=== PATIENT | female | born 1990 | race African-American/Black ===

== ENCOUNTER 2017-08-12 21:32 | Observation (INO) ==
[2017-08-12 22:00] LABS: Apearance,Urine CLEAR (Clear); Bilirubin,Urine Negative (Negative); Blood, Urine Negative (Negative); Glucose,Urine (UA) Negative (Negative); Ketones,Urine Negative (Negative); Mucus,Urine Moderate /LPF (Occasional); Nitrite,Urine Negative (Negative); Protein,Urine Negative; RBC,Urine 2 /HPF (0-4); Squamous Epithelial Cell,Urine Occasional /HPF (0-10); Urine Color Yellow (Yellow); Urine Specific Gravity 1.024 (1.001-1.035); WBC,Urine 1 /HPF (0-6)
[2017-08-12] MEDS ORDERED: ACETAMINOPHEN 500 MG TABLET PO ONE (23:20)
[2017-08-13 08:17] LABS: Basophils % 0.1 % (0.0-0.8); Eosinophils # 0.1 10*3/uL (0.0-0.87); Eosinophils % 1.2 % (0.00-10.9); Hematocrit 22.7 VOL% (35.7-47.0); Immature Granulocytes % 0.6 %; Immature Granulocytes Absolute 0.05 #; Mean Corpuscular HGB Conc 27.3 GM/DL (32-36); Mean Corpuscular Hemoglobin 18 PG (27-34); Mean Corpuscular Volume 65.8 FL (87-102); Mean Platelet Volume 11.2 FL (9.6-12.0); Monocytes # 0.5 10*3/uL (0.11-0.8); Monocytes % 6.6 % (1.7-12.7); Neutrophils # 5.5 10*3/uL (1.4-7.4); Neutrophils % 67.5 % (38.7-73.9); Platelet Count 259 T/CUMM (130-400); Red Blood Count 3.45 MC/CUMM (3.8-5.5); Red Cell Distribution Width 21.1 % (9.3-17.3); White Blood Count 8.1 T/CUMM (4-12)
[2017-08-13 08:24] LABS: Hemoglobin 6.2 GM/DL (12.0-16.0)
[2017-08-13 08:41] LABS: Hypochromasia 2+; Lymphocytes 18 % (20-55); Microcytosis 2+; Platelet Estimate Adequate; Polychromasia Slight; Segmented Neutrophils 76 % (50-85); Target Cells Slight; Total Cells Counted 100
[2017-08-13] MEDS ORDERED: SODIUM CHLORIDE 0.9% 1,000 ML IV PRN (08:46)
[2017-08-13] MEDS ORDERED: ACETAMINOPHEN 500 MG TABLET PO PRN (13:12)
[2017-08-13] MEDS ORDERED: BETAMETH SODIUM PHOS/ACETATE 30 MG/5 ML VIAL IM ONE (17:50)
[2017-08-13] MEDS ORDERED: NIFEdipine 10 MG CAPSULE PO SCH (18:00)
[2017-08-13 19:32] LABS: Basophils % 0.1 % (0.0-0.8); Eosinophils # 0.1 10*3/uL (0.0-0.87); Eosinophils % 1.1 % (0.00-10.9); Hematocrit 28.2 VOL% (35.7-47.0); Hemoglobin 8.2 GM/DL (12.0-16.0); Immature Granulocytes % 0.7 %; Immature Granulocytes Absolute 0.05 #; Lymphocytes # 1.4 10*3/uL (1.4-4.0); Lymphocytes % 18.2 % (21.3-54.2); Mean Corpuscular HGB Conc 29.1 GM/DL (32-36); Mean Corpuscular Hemoglobin 20 PG (27-34); Mean Corpuscular Volume 68.3 FL (87-102); Mean Platelet Volume 11.3 FL (9.6-12.0); Monocytes # 0.4 10*3/uL (0.11-0.8); Monocytes % 5.8 % (1.7-12.7); NRBC # 0.03 10*3/uL; Neutrophils # 5.6 10*3/uL (1.4-7.4); Neutrophils % 74.1 % (38.7-73.9); Platelet Count 260 T/CUMM (130-400); Red Blood Count 4.13 MC/CUMM (3.8-5.5); Red Cell Distribution Width 22.6 % (9.3-17.3); White Blood Count 7.6 T/CUMM (4-12)
[2017-08-13 22:04] VITALS: BP 116/59
== END 2017-08-13 22:09 | disposition home or self-care (01) ==
LOC: N.LD → N.LDOUT 21:32 → N.LD 21:33 → EDOUTPBED 23:02 → N.LD 23:02 → UNDODISOB 08-13 22:09 → N.LD 08-13 22:13 → UNDODEPREF 08-17 15:15 → EDSTATUS 08-17 15:26
PROVIDERS: ADMIT Obstetrics & Gynecology; ATTEND Obstetrics & Gynecology

== ENCOUNTER 2017-10-04 06:15 | Inpatient (IN) ==
[2017-09-28 11:18] LABS: Basophils % 0.1 % (0.0-0.8); Eosinophils % 0.6 % (0.00-10.9); Hematocrit 28.1 VOL% (35.7-47.0); Hemoglobin 8.1 GM/DL (12.0-16.0); Immature Granulocytes % 0.6 %; Immature Granulocytes Absolute 0.04 #; Lymphocytes # 1.5 10*3/uL (1.4-4.0); Mean Corpuscular HGB Conc 28.8 GM/DL (32-36); Mean Corpuscular Hemoglobin 20 PG (27-34); Mean Corpuscular Volume 70.1 FL (87-102); Mean Platelet Volume 9.7 FL (9.6-12.0); Monocytes # 0.3 10*3/uL (0.11-0.8); Monocytes % 4.7 % (1.7-12.7); NRBC # 0.02 10*3/uL; Neutrophils # 5.1 10*3/uL (1.4-7.4); Platelet Count 226 T/CUMM (130-400); Red Blood Count 4.01 MC/CUMM (3.8-5.5); Red Cell Distribution Width 23.4 % (9.3-17.3)
[2017-09-28 11:23] LABS: Apearance,Urine Slightly Hazy (Clear); Bacteria,Urine Occasional /HPF (Few); Bilirubin,Urine Negative (Negative); Blood, Urine Negative (Negative); Glucose,Urine (UA) Negative (Negative); Ketones,Urine 20 mg/dL (Negative); Mucus,Urine Few /LPF (Occasional); Nitrite,Urine Negative (Negative); Protein,Urine Negative; RBC,Urine <1 /HPF (0-4); Squamous Epithelial Cell,Urine Occasional /HPF (0-10); Urine Color Yellow (Yellow); WBC,Urine <1 /HPF (0-6)
[2017-09-28 11:49] LABS: Calcium 8.9 MG/DL (8.5-10.1); Osmolality,Calculated 274.4 MOS/KG (273-304); Potassium 3.5 MMOL/L (3.5-5.1)
[2017-09-28 11:56] LABS: Elliptocytes Few; Hypochromasia 1+; Microcytosis 2+; Tear Drop Cells Slight
[2017-09-28 11:57] LABS: Platelet Estimate Normal
[2017-10-04] MEDS ORDERED: LACTATED RINGERS 250 ML IV ONE (06:30)
[2017-10-04] MEDS ORDERED: ONDANSETRON 4 MG/2 ML VIAL IV PRN (06:30)
[2017-10-04] MEDS ORDERED: LACTATED RINGERS 1,000 ML IV SCH ×2 (06:30→09:30)
[2017-10-04] MEDS ORDERED: CITRIC ACID/SODIUM CITRATE 30 ML UDCUP PO ONE (06:51)
[2017-10-04] MEDS ORDERED: FAMOTIDINE 20 MG/2 ML VIAL IV ONE (06:52)
[2017-10-04 06:59] LABS: Basophils % 0.1 % (0.0-0.8); Eosinophils # 0.1 10*3/uL (0.0-0.87); Eosinophils % 0.8 % (0.00-10.9); Hematocrit 27.4 VOL% (35.7-47.0); Hemoglobin 8.1 GM/DL (12.0-16.0); Immature Granulocytes % 0.6 %; Immature Granulocytes Absolute 0.05 #; Lymphocytes # 1.9 10*3/uL (1.4-4.0); Lymphocytes % 24.7 % (21.3-54.2); Mean Corpuscular HGB Conc 29.6 GM/DL (32-36); Mean Corpuscular Hemoglobin 20 PG (27-34); Mean Corpuscular Volume 68.7 FL (87-102); Mean Platelet Volume 9.7 FL (9.6-12.0); Monocytes # 0.4 10*3/uL (0.11-0.8); Monocytes % 5.5 % (1.7-12.7); Neutrophils # 5.4 10*3/uL (1.4-7.4); Neutrophils % 68.3 % (38.7-73.9); Platelet Count 203 T/CUMM (130-400); Red Blood Count 3.99 MC/CUMM (3.8-5.5); Red Cell Distribution Width 23.2 % (9.3-17.3); White Blood Count 7.9 T/CUMM (4-12)
[2017-10-04] MEDS ORDERED: OXYTOCIN/LR 20 UNIT/1,000 ML BAG IV ONE ×2 (07:11→09:24)
[2017-10-04] MEDS ORDERED: ceFAZolin 2,000 MG in PREMIX 1 EACH IV ONE (07:11)
[2017-10-04 07:18] LABS: Hypochromasia 1+
[2017-10-04 07:19] LABS: Giant Platelets Few; Microcytosis 1+; Ovalocytes Slight; Platelet Estimate Adequate
[2017-10-04] MEDS ORDERED: LIDOCAINE MPF 2% /EPI 20 ML VIAL ONE ×2 (07:21→09:31)
[2017-10-04] MEDS ORDERED: TISSUE ADHESIVE 1 EACH APPLICATOR TOP ONE ×2 (09:12→09:15)
[2017-10-04] MEDS ORDERED: MAGNESIUM HYDROXIDE SUSP 30 ML UDCUP PO PRN (09:24)
[2017-10-04] MEDS ORDERED: MORPHINE 10 MG/10 ML VIAL ONE (09:30)
[2017-10-04] MEDS ORDERED: MIDAZOLAM 2 MG/2 ML VIAL ONE (09:30)
[2017-10-04] MEDS ORDERED: RHO(D) IMMUNE GLOBULIN 300 MCG SYRINGE IM ONE (10:00)
[2017-10-04] MEDS ORDERED: hydrOXYzine HCL 25 MG/1 ML VIAL IM PRN (11:59)
[2017-10-04] MEDS ORDERED: ceFAZolin 1,000 MG in SYRINGE 1 EACH IV SCH (15:00)
[2017-10-04] MEDS ORDERED: SODIUM BICARBONATE 2.4 MEQ/5 ML VIAL ONE (15:03)
[2017-10-04] MEDS: ceFAZolin 1,000 MG in SYRINGE 1 EACH IV SCH (16:12)
[2017-10-04 17:11] LABS: Basophils % 0.2 % (0.0-0.8); Eosinophils % 0.2 % (0.00-10.9); Hematocrit 25.4 VOL% (35.7-47.0); Hemoglobin 7.8 GM/DL (12.0-16.0); Immature Granulocytes % 0.3 %; Immature Granulocytes Absolute 0.03 #; Lymphocytes # 1.5 10*3/uL (1.4-4.0); Lymphocytes % 14.4 % (21.3-54.2); Mean Corpuscular HGB Conc 30.7 GM/DL (32-36); Mean Corpuscular Hemoglobin 21 PG (27-34); Mean Corpuscular Volume 67.9 FL (87-102); Monocytes # 0.5 10*3/uL (0.11-0.8); Monocytes % 4.9 % (1.7-12.7); Neutrophils # 8.1 10*3/uL (1.4-7.4); Platelet Count 177 T/CUMM (130-400); Red Blood Count 3.74 MC/CUMM (3.8-5.5); Red Cell Distribution Width 22.7 % (9.3-17.3); White Blood Count 10.1 T/CUMM (4-12)
[2017-10-04] MEDS: FERROUS SULFATE 325 MG TABLET PO SCH ×2 (18:34→21:29)
[2017-10-05] MEDS: ceFAZolin 1,000 MG in SYRINGE 1 EACH IV SCH (00:35)
[2017-10-05] MEDS: DOCUSATE SODIUM 100 MG CAPSULE PO SCH ×3 (04:39→21:43)
[2017-10-05] MEDS ORDERED: diphenhydrAMINE CAP 25 MG CAPSULE PO PRN (06:03)
[2017-10-05 06:59] LABS: Basophils % 0.3 % (0.0-0.8); Eosinophils # 0.1 10*3/uL (0.0-0.87); Eosinophils % 0.7 % (0.00-10.9); Hematocrit 25.3 VOL% (35.7-47.0); Hemoglobin 7.5 GM/DL (12.0-16.0); Immature Granulocytes % 0.5 %; Immature Granulocytes Absolute 0.05 #; Lymphocytes # 1.3 10*3/uL (1.4-4.0); Lymphocytes % 12.6 % (21.3-54.2); Mean Corpuscular HGB Conc 29.6 GM/DL (32-36); Mean Corpuscular Hemoglobin 21 PG (27-34); Mean Corpuscular Volume 69.3 FL (87-102); Mean Platelet Volume 10.3 FL (9.6-12.0); Monocytes # 0.6 10*3/uL (0.11-0.8); Neutrophils # 8.2 10*3/uL (1.4-7.4); Neutrophils % 79.9 % (38.7-73.9); Platelet Count 185 T/CUMM (130-400); Red Blood Count 3.65 MC/CUMM (3.8-5.5); Red Cell Distribution Width 22.5 % (9.3-17.3); White Blood Count 10.3 T/CUMM (4-12)
[2017-10-05 07:23] LABS: Band Neutrophils 1 % (0-10); Eosinophils 1 % (0-10); Lymphocytes 12 % (20-55); Segmented Neutrophils 84 % (50-85); Total Cells Counted 100
[2017-10-05 07:30] LABS: Hypochromasia 2+; Microcytosis 2+
[2017-10-05 07:31] LABS: Ovalocytes Slight; Platelet Estimate Adequate
[2017-10-05] MEDS: FERROUS SULFATE 325 MG TABLET PO SCH ×2 (09:13→21:43)
[2017-10-05] MEDS: IBUPROFEN 800 MG TABLET PO PRN (12:03)
[2017-10-05] MEDS: SIMETHICONE CHEW 80 MG TABLET PO PRN (21:43)
[2017-10-06] MEDS: IBUPROFEN 800 MG TABLET PO PRN (06:12)
[2017-10-06] MEDS: SIMETHICONE CHEW 80 MG TABLET PO PRN ×2 (10:17→21:58)
[2017-10-06] MEDS: DOCUSATE SODIUM 100 MG CAPSULE PO SCH ×2 (10:17→21:58)
[2017-10-06] MEDS: FERROUS SULFATE 325 MG TABLET PO SCH ×3 (10:17→21:58)
[2017-10-07] MEDS: IBUPROFEN 800 MG TABLET PO PRN (05:09)
[2017-10-07 07:28] VITALS: BP 128/71
[2017-10-07] MEDS: DOCUSATE SODIUM 100 MG CAPSULE PO SCH (09:25)
[2017-10-07] MEDS: FERROUS SULFATE 325 MG TABLET PO SCH (09:25)
== END 2017-10-07 11:00 | disposition home or self-care (01) | DRG 766 ==
LOC: N.LDOUT 06:15 → N.LD 06:34 → N.OB 11:34
PROVIDERS: ADMIT Obstetrics & Gynecology; ATTEND Obstetrics & Gynecology
PROC: LDCSECT (ICD-10-PCS; 2017-10-04 07:15)

== ENCOUNTER 2020-08-13 10:55 | Inpatient (IN) ==
[2020-08-13] MEDS ORDERED: ONDANSETRON 4 MG/2 ML VIAL IV PRN (11:17)
[2020-08-13] MEDS ORDERED: ACETAMINOPHEN 325 MG TABLET PO PRN (11:17)
[2020-08-13] MEDS ORDERED: SODIUM CHLORIDE 0.9% 1,000 ML IV PRN (11:40)
[2020-08-13 12:04] LABS: Bacteria,Urine Occasional /HPF (Few); Bilirubin,Urine Negative (Negative); Blood, Urine Negative (Negative); Glucose,Urine (UA) Negative (Negative); Ketones,Urine 5 mg/dL (Negative); Mucus,Urine Moderate /LPF (Occasional); Nitrite,Urine Negative (Negative); Protein,Urine 30 MG/DL; RBC,Urine 1 /HPF (0-4); Squamous Epithelial Cell,Urine Occasional /HPF (0-10); Urine Appearance CLEAR (Clear); Urine Color Yellow (Yellow); Urine Specific Gravity 1.026 (1.001-1.035); WBC,Urine <1 /HPF (0-6)
[2020-08-13 12:07] LABS: Basophils % 0.1 % (0.0-0.8); Eosinophils # 0.1 10*3/uL (0.0-0.87); Eosinophils % 1.7 % (0.00-10.9); Hematocrit 25.9 VOL% (35.7-47.0); Hemoglobin 7.6 GM/DL (12.0-16.0); Immature Granulocytes % 0.7 %; Immature Granulocytes Absolute 0.05 #; Lymphocytes # 1.8 10*3/uL (1.4-4.0); Lymphocytes % 24.6 % (21.3-54.2); Mean Corpuscular HGB Conc 29.3 GM/DL (32-36); Mean Corpuscular Volume 68.5 FL (87-102); Mean Platelet Volume 10.5 FL (9.6-12.0); Monocytes % 5.2 % (1.7-12.7); Neutrophils % 67.7 % (38.7-73.9); Platelet Count 347 T/CUMM (130-400); Red Blood Count 3.78 MC/CUMM (3.8-5.5); Red Cell Distribution Width 19.1 % (9.3-17.3); White Blood Count 7.5 T/CUMM (4-12)
[2020-08-13 12:23] LABS: Albumin 2.6 G/DL (3.4-5.0); Bilirubin,Total 0.7 MG/DL (0.2-1.0); Calcium 9.2 MG/DL (8.5-10.1); Osmolality,Calculated 271.7 MOS/KG (273-304); Total Protein 7.5 G/DL (6.4-8.3)
[2020-08-14 02:55] LABS: Basophils % 0.3 % (0.0-0.8); Eosinophils # 0.1 10*3/uL (0.0-0.87); Eosinophils % 1.2 % (0.00-10.9); Hematocrit 31.7 VOL% (35.7-47.0); Hemoglobin 9.7 GM/DL (12.0-16.0); Immature Granulocytes % 0.5 %; Immature Granulocytes Absolute 0.04 #; Lymphocytes # 2.1 10*3/uL (1.4-4.0); Lymphocytes % 27.1 % (21.3-54.2); Mean Corpuscular HGB Conc 30.6 GM/DL (32-36); Mean Corpuscular Volume 74.1 FL (87-102); Mean Platelet Volume 10.7 FL (9.6-12.0); Monocytes % 7.9 % (1.7-12.7); Platelet Count 302 T/CUMM (130-400); Red Blood Count 4.28 MC/CUMM (3.8-5.5); Red Cell Distribution Width 22.8 % (9.3-17.3); White Blood Count 7.6 T/CUMM (4-12)
[2020-08-14 03:56] LABS: Hypochromasia 1+; Microcytosis 1+; Platelet Estimate Adequate
[2020-08-14] MEDS: LACTATED RINGERS 1,000 ML IV SCH ×2 (05:18→12:51)
[2020-08-14] MEDS ORDERED: CITRIC ACID/SODIUM CITRATE 30 ML UDCUP PO ONE (07:43)
[2020-08-14] MEDS ORDERED: FAMOTIDINE 20 MG/2 ML VIAL IV ONE (07:43)
[2020-08-14] MEDS ORDERED: LACTATED RINGERS 1,000 ML IV ONE (07:43)
[2020-08-14] MEDS ORDERED: ceFAZolin 2,000 MG in PREMIX 1 EACH IV ONE (08:34)
[2020-08-14] MEDS ORDERED: OXYTOCIN/LR 20 UNIT/1,000 ML BAG IV ONE ×3 (12:00→14:49)
[2020-08-14] MEDS ORDERED: TRANEXAMIC ACID 1,000 MG/10 ML VIAL ONE (13:24)
[2020-08-14] MEDS ORDERED: METHYLERGONOVINE 0.2 MG/1 ML AMP ONE (13:24)
[2020-08-14] MEDS ORDERED: CARBOPROST TROMETHAMINE 250 MCG/ML AMP IM ONE (13:24)
[2020-08-14] MEDS ORDERED: miSOPROStoL 200 MCG TABLET ONE (13:24)
[2020-08-14] MEDS ORDERED: ONDANSETRON 4 MG/2 ML VIAL IV PRN (14:49)
[2020-08-14] MEDS ORDERED: RHO(D) IMMUNE GLOBULIN 300 MCG SYRINGE IM ONE (14:49)
[2020-08-14] MEDS ORDERED: ACETAMINOPHEN 325 MG TABLET PO PRN (14:49)
[2020-08-14 14:53] LABS: Cord Arterial Blood HCO3 20.7 MMOL/L
[2020-08-14 14:56] LABS: Cord Venous Blood HCO3 22.8 MMOL/L; Cord Venous Blood PCO2 40.6 MMHG; Cord Venous Blood PO2 35.2
[2020-08-14] MEDS ORDERED: ePHEDrine 50 MG/ML VIAL IV ONE (15:00)
[2020-08-14] MEDS ORDERED: ONDANSETRON 4 MG/2 ML VIAL IV ONE (15:00)
[2020-08-14] MEDS ORDERED: LACTATED RINGERS 1,000 ML IV SCH (15:00)
[2020-08-14] MEDS ORDERED: MIDAZOLAM 2 MG/2 ML VIAL IV ONE (15:00)
[2020-08-14] MEDS ORDERED: PHENYLEPHRINE 1 MG/10 ML SYRINGE IV ONE (15:00)
[2020-08-14] MEDS ORDERED: fentaNYL 100 MCG/2 ML VIAL IV ONE (15:00)
[2020-08-14] MEDS ORDERED: MORPHINE 10 MG/10 ML VIAL IV ONE (15:00)
[2020-08-14] MEDS ORDERED: BUPIVACAINE SPINAL 0.75% 2 ML AMP SPINAL ONE (15:00)
[2020-08-14] MEDS ORDERED: propofoL 200 MG/20 ML VIAL IV ONE (15:00)
[2020-08-14] MEDS ORDERED: ceFAZolin 1,000 MG in SYRINGE 1 EACH IV SCH (15:00)
[2020-08-14] MEDS ORDERED: BUPIVACAINE MPF 0.25% 30 ML VIAL MISC INJ ONE (15:00)
[2020-08-14] MEDS ORDERED: GLYCOPYRROLATE 0.4 MG/2 ML VIAL IV ONE (15:00)
[2020-08-14] MEDS ORDERED: ACETAMINOPHEN 1,000 MG/100 ML VIAL IV ONE (15:00)
[2020-08-14] MEDS ORDERED: HYDROmorphone 2 MG/1 ML VIAL IV PRN (17:41)
[2020-08-14] MEDS ORDERED: hydrOXYzine HCL 25 MG/1 ML VIAL IM PRN (17:41)
[2020-08-14] MEDS ORDERED: diphenhydrAMINE 50 MG/1 ML VIAL IV PRN (17:41)
[2020-08-14] MEDS: KETOROLAC 30 MG/1 ML VIAL IV SCH (17:58)
[2020-08-14] MEDS: ceFAZolin 1,000 MG in SYRINGE 1 EACH IV SCH (22:22)
[2020-08-14 22:30] LABS: Basophils % 0.2 % (0.0-0.8); Eosinophils # 0.1 10*3/uL (0.0-0.87); Eosinophils % 0.4 % (0.00-10.9); Hematocrit 31.1 VOL% (35.7-47.0); Immature Granulocytes % 0.4 %; Immature Granulocytes Absolute 0.05 #; Lymphocytes # 2.1 10*3/uL (1.4-4.0); Lymphocytes % 16.1 % (21.3-54.2); Mean Corpuscular HGB Conc 30.2 GM/DL (32-36); Mean Corpuscular Volume 74.6 FL (87-102); Mean Platelet Volume 10.1 FL (9.6-12.0); Monocytes % 6.2 % (1.7-12.7); Neutrophils % 76.7 % (38.7-73.9); Platelet Count 252 T/CUMM (130-400); Red Blood Count 4.17 MC/CUMM (3.8-5.5); Red Cell Distribution Width 22.5 % (9.3-17.3)
[2020-08-14 22:32] LABS: Hemoglobin 9.4 GM/DL (12.0-16.0)
[2020-08-14 22:50] LABS: Anisocytosis 1+; Burr Cells Few; Elliptocytes Few; Hypochromasia 1+
[2020-08-14 22:51] LABS: Platelet Estimate Adequate; Poikilocytosis 1+; Polychromasia Few; Schistocytes Few
[2020-08-15] MEDS: KETOROLAC 30 MG/1 ML VIAL IV SCH ×3 (00:17→11:40)
[2020-08-15 03:56] LABS: Basophils % 0.3 % (0.0-0.8); Eosinophils # 0.1 10*3/uL (0.0-0.87); Eosinophils % 0.8 % (0.00-10.9); Hematocrit 30.8 VOL% (35.7-47.0); Hemoglobin 9.6 GM/DL (12.0-16.0); Immature Granulocytes % 0.4 %; Immature Granulocytes Absolute 0.05 #; Lymphocytes # 1.7 10*3/uL (1.4-4.0); Lymphocytes % 14.9 % (21.3-54.2); Mean Corpuscular HGB Conc 31.2 GM/DL (32-36); Mean Corpuscular Volume 73.5 FL (87-102); Mean Platelet Volume 10.6 FL (9.6-12.0); Monocytes % 6.6 % (1.7-12.7); Platelet Count 239 T/CUMM (130-400); Red Blood Count 4.19 MC/CUMM (3.8-5.5); Red Cell Distribution Width 22.4 % (9.3-17.3); White Blood Count 11.5 T/CUMM (4-12)
[2020-08-15 04:18] LABS: Hypochromasia 1+; Microcytosis 1+; Ovalocytes Slight; Platelet Estimate Adequate
[2020-08-15] MEDS: ceFAZolin 1,000 MG in SYRINGE 1 EACH IV SCH (05:55)
[2020-08-15] MEDS: DOCUSATE SODIUM 100 MG CAPSULE PO SCH ×3 (06:15→20:25)
[2020-08-15] MEDS: IRON (CARBONYL)/VIT C/B12/FA TABLET PO SCH (08:34)
[2020-08-15] MEDS: MULTIVITAMIN (PRENATAL) TABLET PO SCH (08:36)
[2020-08-15] MEDS: MAGNESIUM HYDROXIDE SUSP 30 ML UDCUP PO PRN (14:38)
[2020-08-15] MEDS: SIMETHICONE CHEW 80 MG TABLET PO PRN (15:02)
[2020-08-15] MEDS: IBUPROFEN 800 MG TABLET PO PRN (16:27)
[2020-08-15] MEDS ORDERED: MAGNESIUM CITRATE 300 ML BOTTLE PO ONE (16:29)
[2020-08-16] MEDS: IRON (CARBONYL)/VIT C/B12/FA TABLET PO SCH (10:23)
[2020-08-16] MEDS: DOCUSATE SODIUM 100 MG CAPSULE PO SCH ×2 (10:23→21:52)
[2020-08-16] MEDS: MULTIVITAMIN (PRENATAL) TABLET PO SCH (10:23)
[2020-08-16] MEDS: SIMETHICONE CHEW 80 MG TABLET PO PRN ×2 (10:23→18:10)
[2020-08-16] MEDS ORDERED: BISACODYL 10 MG SUPP RECTAL PRN (10:26)
[2020-08-16] MEDS: MAGNESIUM HYDROXIDE SUSP 30 ML UDCUP PO PRN (13:05)
[2020-08-16] MEDS ORDERED: MAGNESIUM CITRATE 300 ML BOTTLE PO ONE (14:33)
[2020-08-16] MEDS: IBUPROFEN 800 MG TABLET PO PRN (20:02)
[2020-08-16 21:02] LABS: Basophils % 0.2 % (0.0-0.8); Eosinophils # 0.1 10*3/uL (0.0-0.87); Eosinophils % 0.7 % (0.00-10.9); Hematocrit 32.9 VOL% (35.7-47.0); Hemoglobin 10.2 GM/DL (12.0-16.0); Immature Granulocytes % 0.7 %; Immature Granulocytes Absolute 0.11 #; Lymphocytes # 1.3 10*3/uL (1.4-4.0); Lymphocytes % 8.3 % (21.3-54.2); Mean Corpuscular Volume 73.1 FL (87-102); Mean Platelet Volume 10.3 FL (9.6-12.0); Monocytes % 4.7 % (1.7-12.7); Neutrophils % 85.4 % (38.7-73.9); Platelet Count 356 T/CUMM (130-400); Red Cell Distribution Width 23.1 % (9.3-17.3); White Blood Count 15.5 T/CUMM (4-12)
[2020-08-16 21:43] LABS: Polychromasia 1+
[2020-08-16 21:44] LABS: Bacteria,Urine Occasional /HPF (Few); Bilirubin,Urine Negative (Negative); Blood, Urine Large mg/dL (Negative); Glucose,Urine (UA) Negative (Negative); Ketones,Urine Negative (Negative); Mucus,Urine Occasional /LPF (Occasional); Nitrite,Urine Negative (Negative); Protein,Urine 30 MG/DL; RBC,Urine 404 /HPF (0-4); Squamous Epithelial Cell,Urine Occasional /HPF (0-10); Urine Appearance Slightly Hazy (Clear); Urine Color Yellow (Yellow); Urine Specific Gravity 1.008 (1.001-1.035); Urine Urobilinogen < 2.0 EU/DL (0.2-1.0); WBC,Urine 59 /HPF (0-6)
[2020-08-16 21:44] LABS: Ovalocytes Few
[2020-08-16 21:45] LABS: Anisocytosis 1+; Poikilocytosis 1+
[2020-08-16 21:46] LABS: Burr Cells Few; Hypochromasia 1+; Microcytosis 1+; Platelet Estimate Adequate; Schistocytes Few
[2020-08-17] MEDS: IBUPROFEN 800 MG TABLET PO PRN ×2 (08:50→18:09)
[2020-08-17] MEDS: MULTIVITAMIN (PRENATAL) TABLET PO SCH (08:50)
[2020-08-17] MEDS: IRON (CARBONYL)/VIT C/B12/FA TABLET PO SCH (08:50)
[2020-08-17] MEDS: DOCUSATE SODIUM 100 MG CAPSULE PO SCH ×2 (08:50→20:12)
[2020-08-17] MEDS: MAGNESIUM HYDROXIDE SUSP 30 ML UDCUP PO PRN ×2 (08:50→20:12)
[2020-08-17] MEDS ORDERED: METOCLOPRAMIDE 10 MG/2 ML VIAL IV SCH (11:30)
[2020-08-17] MEDS: SIMETHICONE CHEW 80 MG TABLET PO PRN ×2 (12:50→20:12)
[2020-08-17] MEDS: METOCLOPRAMIDE 10 MG TABLET PO SCH ×2 (12:58→18:33)
[2020-08-18] MEDS: IBUPROFEN 800 MG TABLET PO PRN (03:55)
[2020-08-18] MEDS: METOCLOPRAMIDE 10 MG TABLET PO SCH ×2 (04:34→08:52)
[2020-08-18 07:12] VITALS: BP 112/61
[2020-08-18] MEDS: MULTIVITAMIN (PRENATAL) TABLET PO SCH (08:53)
[2020-08-18] MEDS: IRON (CARBONYL)/VIT C/B12/FA TABLET PO SCH (08:53)
[2020-08-18] MEDS: DOCUSATE SODIUM 100 MG CAPSULE PO SCH (08:53)
== END 2020-08-18 12:20 | disposition home or self-care (01) | DRG 788 ==
LOC: N.LDOUT 10:55 → N.LD 10:58 → N.OB 08-14 18:09
PROVIDERS: ADMIT Obstetrics & Gynecology; ATTEND Obstetrics & Gynecology